=== PATIENT | female | born 1960 | race Caucasian/White ===

== ENCOUNTER 2022-06-13 19:58 | Emergency (ER) | payer MEDICAID ==
[~2022-06-13] VITALS: Ht 165.1 cm; Wt 59.9 kg
--- NOTE | 2022-06-13 20:30 | NUR ---
ESTEFANI iRvera FROM [facility] C/O L FOOT LAC. STEPPED ON GLASS. TDAP NOT UTD NOT UTD. PT A/OX4. TOLERATING R/A WELL WITH NO SOB. SAFETY MEASURES IN PLACE.
--- NOTE | 2022-06-13 20:40 | NUR ---
[employer] AT PT'S BEDSIDE
[2022-06-13] MEDS ORDERED: IBUPROFEN 600 MG TABLET ONE (20:43)
[2022-06-13] MEDS ORDERED: ACETAMINOPHEN ES 500 MG TABLET ONE (20:43)
[2022-06-13] MEDS ORDERED: TDAP [DIPH/PERTUSSIS/TET] 0.5 ML VIAL IM ONE ×2 (20:44→21:00)
[2022-06-13] MEDS ORDERED: CLINDAMYCIN HCL 150 MG CAPSULE PO ONE (21:00)
[2022-06-13] MEDS ORDERED: IBUPROFEN 600 MG TABLET PO ONE (21:00)
[2022-06-13] MEDS ORDERED: ACETAMINOPHEN ES 500 MG TABLET PO ONE (21:00)
[2022-06-13] MEDS ORDERED: CLINDAMYCIN HCL 150 MG CAPSULE ONE (21:16)
[2022-06-13] MEDS ORDERED: CLIN300C12 PO (21:28)
[2022-06-13] MEDS ORDERED: IBUP-1957 PO (21:28)
--- NOTE | 2022-06-13 22:14 | NUR ---
Patient given written and verbal discharge instructions. Patient verbalizes understanding of instructions. Patient is ambulatory with steady gait. Refuses offer of prison placement. Patient given list of available shelters in surrounding area.
--- NOTE | 2022-06-13 22:20 | NUR ---
PT BEING PICKED UP BY FRIEND.
[2022-06-13 22:51] VITALS: BP 134/72
== END 2022-06-13 22:51 | disposition home or self-care (01) ==
LOC: ER 20:42
DX: S91.312A Laceration without foreign body, left foot, initial encounter (principal); Z88.0 Allergy status to penicillin; Z88.8 Allergy status to other drugs, medicaments and biological substances; Z59.00 Homelessness unspecified; Z79.899 Other long term (current) drug therapy; W25.XXXA Contact with sharp glass, initial encounter; Y93.89 Activity, other specified; Y92.89 Other specified places as the place of occurrence of the external cause; Y99.8 Other external cause status
CPT/HCPCS: 73630-TC; 90715